=== PATIENT | female | born 1985 | race Caucasian/White ===

== ENCOUNTER 2018-09-18 18:29 | Inpatient (IN) | payer BC ==
--- NOTE | 2018-09-18 18:48 | PDOC ---
History of Present Illness - General Stated Complaint: SICK, History Source: Patient - History of Present Illness Timing/Duration: reports: getting worse Quality: reports: severe Abdominal Pain Onset Location: reports: suprapubic Past History - Past Medical History Allergies/Adverse Reactions: Allergies Allergy/AdvReac Type Severity Reaction Status Date / Time Penicillins Allergy Verified 09/18/18 19:02 sulfamethoxazole Allergy Verified 09/18/18 19:02 [From Bactrim] trimethoprim [From Bactrim] Allergy Verified 09/18/18 19:02 Home Medications: Ambulatory Orders Vortioxetine Hydrobromide [Trintellix] 10 mg PO DAILY 09/18/18 Review of Systems - Review of Systems Constitutional: No: Chills, Fever, Weakness ABD/GI: Yes: Abdominal cramping. No: Nausea, Vomiting : No: Dysuria *Physical Exam - Physical Exam General Appearance: Yes: Appropriately Dressed. No: Apparent Distress HEENT: positive: Normal Voice Neck: positive: Supple Respiratory/Chest: negative: Respiratory Distress Gastrointestinal/Abdominal: positive: Normal Bowel Sounds, Tender (to R suprapubic), Soft. negative: Distended, Guarding, Rebound Musculoskeletal: negative: CVA Tenderness Integumentary: positive: Dry, Warm Neurologic: positive: Fully Oriented, Alert, Normal Mood/Affect ED Treatment Course - LABORATORY CBC & Chemistry Diagram: 09/18/18 18:58 09/18/18 18:58 Medical Decision Making - Medical Decision Making 09/18/18 18:46 33 yo (s/p 1 spon AB), currently ~8 weeks and dx w/ ectopic after presenting to OB last week with worsening vaginal bleeding and R sided pelvic pain with inappropriate rise in beta. Of note, patient's last ultrasound was 09/10, which was read as no IUP or adnexal mass seen. Patient's beta on 09/10 was 47, was 174 in OB's office today and sent to ED for admission for the OR per pt. No dizziness, n/v/f/c at this time See exam Ectopic Stable Beta 147 in Ob office today, (up from 47, 09/10) w/ no obvious seen on last US 09/10 (no rpt US per pt) -pre-op labs -NPO -IVF -OB c/s -admit 09/18/18 19:[address] Richardson ([phone]), pt's OB. MD confirms that patient is on the OR schedule for 7 PM and that OR is aware. Wants patient admitted to his service *DC/Admit/Observation/Transfer Diagnosis at time of Disposition: Ectopic Qualifiers: Location of ectopic : unspecified location Intrauterine status: without intrauterine Qualified Code(s): O00.90 - Unspecified ectopic without intrauterine - Discharge Dispostion Condition at time of disposition: Decision to Admit order: Yes - Referrals Referrals: Bernarda Zhong MD [Primary Care Provider] - - Patient Instructions - Post Discharge Activity
[2018-09-18 18:53] VITALS: BMI 26.2
[2018-09-18] MEDS ORDERED: SODIUM CHLORIDE 1,000 ML IV STA (18:59)
[2018-09-18] MEDS ORDERED: ACETAMINOPHEN 1000 MG/100 ML VIAL (NON FORMULARY) IVPB ONE ×2 (18:59→22:45)
[2018-09-18 19:10] LABS: BASO % 0.6 % (0-2.0); EOS % 3.1 % (0-4.5); HEMATOCRIT 43.2 % (32.4-45.2); LYMPH % 37.1 % (8-40); MCHC 34.7 g/dl (32.0-36.0); MEAN CELL VOLUME 86.3 fl (80-96); MEAN PLT VOLUME 7.1 fl (7.5-11.1); MONO % 5.6 % (3.8-10.2); NEUT % 53.6 % (42.8-82.8); PLATELET COUNT 304 K/MM3 (134-434); RDW 13.3 % (11.6-15.6); WHITE BLOOD COUNT 9.9 K/mm3 (4.0-10.0)
[2018-09-18] MEDS ORDERED: ACETAMINOPHEN INJECTION 100 ML IVPB ONE (19:13)
[2018-09-18 19:37] LABS: ALBUMIN 4.4 g/dl (3.4-5.0); ALK PHOS 87 U/L (45-117); ANION GAP 8 MMOL/L (8-16); BILIRUBIN,TOTAL 0.5 mg/dL (0.2-1); BLOOD UREA NITROGEN 12 mg/dL (7-18); CHLORIDE 105 mmol/L (98-107); CO2 26 mmol/L (21-32); CREATININE 0.6 mg/dL (0.55-1.3); GLUCOSE,RANDOM 87 mg/dL (74-106); SGOT/AST 14 U/L (15-37); SGPT/ALT 19 U/L (13-61); SODIUM 139 mmol/L (136-145); TOT PROT 7.5 g/dl (6.4-8.2)
[2018-09-18 20:12] LABS: INR 0.91 (0.83-1.09); PROTHROMBIN TIME (PATIENT) 10.7 SEC (9.7-13.0)
[2018-09-18] MEDS ORDERED: PROMETHAZINE HCL 25 MG/1 ML VIAL IVPUSH PRN ×2 (20:15→21:33)
[2018-09-18] MEDS ORDERED: oxyCODONE HCL 5 MG TABLET PO PRN (20:15)
[2018-09-18] MEDS ORDERED: ONDANSETRON 4 MG/2 ML VIAL IVPUSH PRN ×2 (20:15→21:33)
[2018-09-18] MEDS ORDERED: LIDOCAINE HCL/PF 2% SDV 5ML VIAL ONE (20:23)
[2018-09-18] MEDS ORDERED: PROPOFOL 20 ML ONE (20:23)
[2018-09-18] MEDS ORDERED: fentaNYL CITRATE 250 MCG/5 ML VIAL ONE (20:23)
[2018-09-18] MEDS ORDERED: SUCCINYLCHOLINE CHLORIDE 200 MG/10 ML VIAL ONE (20:23)
[2018-09-18] MEDS ORDERED: ROCURONIUM BROMIDE 50 MG/5 ML VIAL ONE (20:24)
[2018-09-18] MEDS ORDERED: ceFAZolin SODIUM 1 GM VIAL IVPB ONE (20:34)
[2018-09-18] MEDS ORDERED: ceFAZolin SODIUM 1 GM VIAL ONE (21:13)
[2018-09-18] MEDS ORDERED: KETOROLAC TROMETHAMINE 30 MG/1 ML VIAL ONE (21:13)
[2018-09-18] MEDS ORDERED: DEXAMETHASONE SOD PHOSPHATE 4 MG/1 ML VIAL ONE (21:13)
[2018-09-18] MEDS ORDERED: GLYCOPYRROLATE 0.2 MG/1 ML VIAL ONE ×2 (21:13→21:14)
[2018-09-18] MEDS ORDERED: NEOSTIGMINE METHYLSULFATE 0.5 MG/ML - 10 ML MDV ONE (21:13)
--- NOTE | 2018-09-18 21:45 | OP ---
Operative Note - Note: Operative Date: 09/18/18 Pre-Operative Diagnosis: Pelvic pain. Suspected ectopic Operation: D&C. Laparoscopic rt salpingectomy. Corinna Post-Operative Diagnosis: Other (confirmed rt tubal ) Surgeon: Rey Richardson Anesthesia: General Estimated Blood Loss (mls): 50
--- NOTE | 2018-09-18 21:49 | PN ---
Progress Note (short form) - Note Progress Note: Post op note: Rt tubal . Pelvic adhesions. Operation: D&C Laparoscopic rt salpingectomy. Lysis of adhesions. Compl. - none. EBL [address] Price chandra.
--- NOTE | 2018-09-18 22:35 | OP ---
DATE OF OPERATION: 09/18/2018 PREOPERATIVE DIAGNOSES: 1. Right pelvic pain. 2. Low-level positive test. 3. Suspecting ectopic . POSTOPERATIVE DIAGNOSES: 1. Right ectopic . 2. Pelvic adhesions. SURGEON: Debra Le MD ANESTHESIA: MAC with general. PROCEDURES: 1. Dilatation and curettage. 2. Laparoscopy. 3. Laparoscopic right salpingectomy. 4. Lysis of adhesions. PROCEDURE AND FINDINGS: Under general anesthesia in dorsal lithotomy position, patient was examined. Routine prep and drape were carried out. Cervix was grasped with a tenaculum, having been visualized with a speculum. Gentle dilatation was carried out and sharp curettage was performed, producing a rather small amount of tissue. TwitJumplka uterine manipulator was placed in the uterus. Abdomen was entered through an intraumbilical 5-mm incision with Veress needle and insufflation was carried out with 4 L of carbon dioxide. Under direct vision, a 5-mm trocar was placed in the abdomen. Findings were appreciated. Large bleeding, right fallopian tube, was noted, containing tubal . Adhesions were noted throughout the pelvis, but left ovary and left fallopian tube were completely normal. Right ovary was normal. There was about 100 mL of blood in the abdomen. Two additional 5-mm trocars were placed to the right and left side of the umbilicus. Fallopian tube was dissected using LigaSure device. There was no complication with the procedure. Lavage was carried out and pelvis was examined. Several areas of adhesions were released using LigaSure device. Procedure was deemed completed at that point. Gas was allowed to escape from the abdomen and all instruments were removed under direct vision. Umbilical incision was closed with [id number] Vicryl 0 suture on fascia and Monocryl 3-0 subcuticular on skin. Dermabond was used for dressings. The 5-mm incisions required only Dermabond. Patient tolerated the procedure very well. Blood loss was 50 mL. She was transferred to PACU awake, extubated, and stable. MD EDI [id number]
[2018-09-18] MEDS ORDERED: KETOROLAC TROMETHAMINE 30 MG/1 ML VIAL IVPUSH PRN (22:36)
[2018-09-18] MEDS ORDERED: LACTATED RINGERS SOLUTION 1,000 ML IV SCH (22:45)
[2018-09-19] MEDS: oxyCODONE HCL 5 MG TABLET PO PRN ×3 (00:04→09:30)
[2018-09-19 06:38] VITALS: BP 94/52; PULSE 71; TEMP 98.8
--- NOTE | 2018-09-20 17:23 | PATH ---
Surgical Pathology Report Patient Name: OLAF AUGUSTINE [facility]. Rec. 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 ENDOMETRIAL CURETTINGS: FRAGMENTS OF PROLIFERATIVE ENDOMETRIUM. B. RIGHT FALLOPIAN TUBE, RESECTION: CHORIONIC VILLI PRESENT, CONSISTENT WITH ECTOPIC (TUBAL) . Electronically Signed Ej Thomas M.D. Gross Description A. Received in formalin labeled "endometrial curettings," is a 4.0 x 3.2 x 0.4 cm aggregate of aguilar soft tissue fragments admixed with mucus. The formalin and filtered and the specimen is entirely submitted in 2 cassettes. B. Received in formalin labeled "right fallopian tube," is a 6 cm in length fimbriated fallopian tube. The outer surface is aguilar taylor and smooth. Sectioning reveals a focally dilated lumen containing blood clot. No definite villous tissue or somatic tissue is identified. Separately received within the same container is a 3.0 x 2.0 x 0.5 cm aggregate of red brown blood clot. Caisson Worker sections are submitted in 4 cassettes as follows: 1-fimbria; 2-3-cross sections of fallopian tube; 4-separately received blood clot. /09/19/2018 saudi09/19/2018
== END 2018-09-19 15:07 | disposition home or self-care (01) | DRG 819 ==
LOC: JER 18:29 → JERBED 18:55 → J3W 23:09
PROVIDERS: ADMIT Specialist; ATTEND Specialist
PROC: 10D07Z8 Extraction of Products of Conception, Other, Via Natural or Artificial Opening (ICD-10-PCS; 2018-09-18)
PROC: 0UB58ZZ Excision of Right Fallopian Tube, Via Natural or Artificial Opening Endoscopic (ICD-10-PCS; principal; 2018-09-18 20:00)
PROC: 10T28ZZ Resection of Products of Conception, Ectopic, Via Natural or Artificial Opening Endoscopic (ICD-10-PCS; 2018-09-18 20:00)
DX: O00.101 Right tubal pregnancy without intrauterine pregnancy (principal); Z3A.08 8 weeks gestation of pregnancy; N73.6 Female pelvic peritoneal adhesions (postinfective)
CPT/HCPCS: 36415; 80053; 84702; 85025; 85610; 86850; 86870; 86900; 86901; 86902; 86999; 88305-TC; 94760; 99284-25; J0131; J7030

== ENCOUNTER 2021-08-23 14:20 | Emergency (ER) | payer BC ==
[2021-08-23 14:30] VITALS: BP 113/74; PULSE 79; TEMP 98.2; BMI 29.9
[2021-08-23] MEDS ORDERED: RHO(D) IMMUNE GLOBULIN 1,500 UNIT DISP.SYRIN IM ONE (14:31)
== END 2021-08-23 18:13 | disposition home or self-care (01) ==
LOC: JERFT 14:20
PROC: 3E023GC Introduction of Other Therapeutic Substance into Muscle, Percutaneous Approach (ICD-10-PCS; principal; 2021-08-23)
DX: O20.0 Threatened abortion (principal)
CPT/HCPCS: 86850; 86900; 86901; 86999; 99284-25; J1561

== ENCOUNTER 2022-02-13 19:32 | Inpatient (IN) | payer BC ==
[2022-02-13] MEDS ORDERED: DINOPROSTONE 10 MG VAGINAL SUPPOSITORY VG ONE (20:30)
[2022-02-13] MEDS ORDERED: ZOLPIDEM TARTRATE 5 MG TABLET PO PRN (21:33)
[2022-02-13 21:51] VITALS: BMI 32.5
[2022-02-13] MEDS ORDERED: ZOLPIDEM TARTRATE 5 MG TABLET ONE (23:44)
[2022-02-14] MEDS: ELECTROLYTE-148 SOLN 1,000 ML IV SCH ×3 (01:30→11:59)
[2022-02-14] MEDS: CLINDAMYCIN 900 MG PREMIX IVPB 900 MG/50 ML BAG IVPB SCH ×2 (05:30→10:00)
[2022-02-14] MEDS ORDERED: OXYTOCIN 30 UNITS in 0.9% NS 30 UNIT/500 ML INFUS.BAG IVPB SCH (06:00)
[2022-02-14] MEDS ORDERED: FENTANYL/BUPIVACAINE/NS/PF - PCEA - 50 ML DISP.SYRIN EP ONE ×2 (09:50→15:05)
[2022-02-14] MEDS ORDERED: CLINDAMYCIN 900 MG PREMIX IVPB 900 MG/50 ML BAG IVPB ONE (10:01)
[2022-02-14] MEDS: FENTANYL/BUPIVACAINE/NS/PF - PCEA - 50 ML DISP.SYRIN EP SCH ×2 (10:55→15:07)
[2022-02-14] MEDS ORDERED: NALOXONE HCL 0.4 MG/ML VIAL IVPUSH PRN (11:30)
[2022-02-14] MEDS ORDERED: BUPIVACAINE HCL/PF 0.25% (2.5MG/ML) 10 ML VIAL ONE (14:44)
[2022-02-14] MEDS ORDERED: LIDOCAINE HCL 1% PRESERVATIVE FREE - 30ML VIAL ONE (14:44)
[2022-02-14] MEDS ORDERED: OXYTOCIN 20 UNITS in 0.9% NS 20 UNIT/1,000 ML INFUS.BAG IV ONE (15:49)
[2022-02-14] MEDS ORDERED: METHYLERGONOVINE MALEATE 0.2 MG/1 ML AMP IM PRN (17:25)
[2022-02-14] MEDS ORDERED: BENZOCAINE 28 GM HEMORRHOIDAL OINTMENT TP PRN (17:25)
[2022-02-14] MEDS ORDERED: BENZOCAINE 20% 57 GM BOTTLE TP PRN (17:25)
[2022-02-14] MEDS ORDERED: oxyCODONE HCL 5 MG TABLET PO PRN (17:25)
[2022-02-14] MEDS ORDERED: BISACODYL 10 MG SUPP.RECT RC PRN (17:25)
[2022-02-14] MEDS ORDERED: ACETAMINOPHEN 325 MG TABLET (FP) PO PRN (17:25)
[2022-02-14] MEDS ORDERED: WITCH HAZEL 50% (TUCKS) 40 PAD/JAR PAD TP PRN (17:25)
[2022-02-14] MEDS ORDERED: OXYTOCIN 20 UNITS in 0.9% NS 20 UNIT/1,000 ML INFUS.BAG IV SCH (17:30)
[2022-02-14] MEDS: IBUPROFEN 600 MG TABLET (FP) PO PRN (19:31)
[2022-02-15] MEDS: IBUPROFEN 600 MG TABLET (FP) PO PRN ×4 (02:14→20:19)
[2022-02-15 07:59] LABS: BASO % 0.2 % (0-2.0); EOS % 1.2 % (0-4.5); HEMATOCRIT 35.4 % (32.4-45.2); HEMOGLOBIN 12.3 GM/dL (10.7-15.3); LYMPH % 20.2 % (8-40); MCH 29.3 pg (25.7-33.7); MCHC 34.7 g/dl (32.0-36.0); MEAN CELL VOLUME 84.4 fl (80-96); MONO % 7.2 % (3.8-10.2); NEUT % 71.2 % (42.8-82.8); PLATELET COUNT 205 10^3/uL (134-434); RDW 14.4 % (11.6-15.6); WHITE BLOOD COUNT 11.8 K/mm3 (4.0-10.0)
[2022-02-15] MEDS ORDERED: SENNOSIDES/DOCUSATE COMBO (SENNA PLUS) TABLET (UD) PO PRN (22:00)
[2022-02-15 22:13] VITALS: TEMP 98.1
[2022-02-16] MEDS: IBUPROFEN 600 MG TABLET (FP) PO PRN ×2 (05:24→09:48)
[2022-02-16 10:00] VITALS: BP 100/66; PULSE 75
== END 2022-02-16 16:53 | disposition home or self-care (01) | DRG 807 ==
LOC: JLDR 19:32 → J3W 02-14 17:55
PROVIDERS: ADMIT Specialist; ATTEND Specialist
PROC: 3E0P7VZ Introduction of Hormone into Female Reproductive, Via Natural or Artificial Opening (ICD-10-PCS; 2022-02-13)
PROC: 10E0XZZ Delivery of Products of Conception, External Approach (ICD-10-PCS; principal; 2022-02-14)
DX: O70.0 First degree perineal laceration during delivery (principal); Z37.0 Single live birth; O99.824 Streptococcus B carrier state complicating childbirth; Z3A.38 38 weeks gestation of pregnancy; Z87.59 Personal history of other complications of pregnancy, childbirth and the puerperium
CPT/HCPCS: 36415; 59409; 85025; 85461; 86999